=== PATIENT | female | born 1965 | race Caucasian/White ===

== ENCOUNTER 2018-04-19 23:27 | Emergency (ER) | payer BC ==
[~2018-04-19] VITALS: Ht 177.8 cm; Wt 92.5 kg
[2018-04-19 23:45] VITALS: BP_SYST 147
[2018-04-20] MEDS ORDERED: DIAZEPAM 10 MG/2 ML DISP.SYRIN IM ONE (00:15)
[2018-04-20] MEDS ORDERED: DIAZEPAM 10 MG/2 ML DISP.SYRIN ONE (00:35)
[2018-04-20 01:04] VITALS: BP_SYST 142
== END 2018-04-20 01:04 | disposition home or self-care (01) ==
LOC: SED 23:27
DX: S13.4XXA Sprain of ligaments of cervical spine, initial encounter (principal); X58.XXXA Exposure to other specified factors, initial encounter; Y93.89 Activity, other specified; Y92.89 Other specified places as the place of occurrence of the external cause; Y99.8 Other external cause status
CPT/HCPCS: 96372; 99283; J3360